=== PATIENT | male | born 1965 | race Caucasian/White ===

== ENCOUNTER 2020-02-28 05:18 | Observation (INO) ==
--- NOTE | 2020-02-19 11:20 | PAT Medication Instructions ---
Medication Instructions Date of Service February 19, 2020 Home Medications ascorbic acid (vitamin C) [Vitamin C] 1 g PO QAM calcium carbonate-vitamin D3 [Calcium 500 + D] 1 tab PO QAM cyanocobalamin (vitamin B-12) [Vitamin B-12] 1,000 mcg PO QAM finasteride 5 mg PO QAM multivitamin 1 cap PO QAM DO NOT take the morning of surgery ascorbic acid (vitamin C) [Vitamin C] 1 g PO QAM calcium carbonate-vitamin D3 [Calcium 500 + D] 1 tab PO QAM cyanocobalamin (vitamin B-12) [Vitamin B-12] 1,000 mcg PO QAM multivitamin 1 cap PO QAM Take morning of surgery With a small sip of water, OTHERWISE NOTHING TO EAT OR DRINK AFTER MIDNIGHT: finasteride 5 mg PO QAM Other Notes If you have any questions please call us at [phone] or [phone] or [phone] or [phone]
--- NOTE | 2020-02-20 12:52 | Anesthesiology Consultation ---
Date of Service February 20, 2020 Assessment & Plan (1) Encounter for pre-operative examination: Per PAT assessment on 02/19: Travel screen- Lives in [facility]. Travel to [facility] for doctor appt. Works in [employer]. 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 No known COVID-19 positive contacts. No current COVID-19 related symptoms. Surgeon arranging preop COVID testing (planned for 02/21). Awaiting results. Chart Review Chart Review: Acceptable Risk for Surgery (pending surgeon-ordered PCP clearance (Dr. Robb Martinez)) and Patient seen in Pre Admission Testing Teaching & Discussion Pre-Anesthesia Teaching/Discussion Notes: Instructed NPO after midnight before surgery,except medications with 15 cc of water. Medication instructions provided according to the PAT guidelines. History Surgery Operation Date: 02/28/20 11:40 Proposed Procedures p Left Total Hip Arthroplasty - Drew Cordero MD Height/Weight Height: 5 ft 10.5 in Weight: 110.9 kg Allergies Allergy/AdvReac Type Severity Reaction Status Date / Time lisinopril Allergy Mild Cough Verified 02/19/20 09:51 Medications Home Medications Medication Instructions Recorded Confirmed Last Taken ascorbic acid (vitamin C) [Vitamin 1 g PO QAM 02/19/20 02/19/20 Unknown C] calcium carbonate-vitamin D3 1 tab PO QAM 02/19/20 02/19/20 Unknown [Calcium 500 + D] cyanocobalamin (vitamin B-12) 1,000 mcg PO QAM 02/19/20 02/19/20 Unknown [Vitamin B-12] finasteride 5 mg PO QAM 02/19/20 02/19/20 Unknown multivitamin 1 cap PO QAM 02/19/20 02/19/20 Unknown Past Medical History Medical History Chronic back pain Hx of blood clots LLE post-op thyroid surgery (04/2019)- was on Xarelto x 2-3 months Hyperlipidemia Obesity Osteoarthritis Exercise / Class Metabolic Activity II 4-5 Yardwork/Stairs/Walk up hill Past Surgical History Surgical History Hx of colonoscopy Hx of thyroidectomy partial (2/2 thyroid enlargement/no cancer) Hx of tonsillectomy Past Anesthesia History No Hx of Anesthesia Complications and No Family Hx of Anesthesia Complications History of PONV No Hx of PONV and No Hx of Motion Sickness Social History Smoking Status: Never smoker Do You Dip or Chew Tobacco: No Hx Alcohol Use: Yes Alcohol type: wine alcohol intake frequency: 0-2 drinks per day (2 glasses wine/day) Hx Substance Use: No substance use type: does not use Review of Systems Patient denies chest pain, shortness of breath, dyspnea on exertion, fever, chills, cough, wheezing, palpitations. Physical Exam Vital Signs VITALS BP 127/84 P 85 TEMP 98.2 SP02 96%RA RESP 18 PHYSICAL Full neck and c-spine range of motion. Full TMJ range of motion. TMD 3 finger breaths Mallampati Score 3 Dentition: missing molars Lungs: clear throughout to auscultation Cardiac: regular rate and rhythm, no murmurs noted Spine: normal Carotid arteries: negative bruit Extremities: no edema Testing Laboratory Results 02/20/20 13:59 02/20/20 13:59 PT 10.9 Seconds (9.0-12.0) 02/20/20 13:59 INR 1.0 (0.9-1.1) 02/20/20 13:59 APTT 31.7 Seconds (21.0-31.0) H 02/20/20 13:59 Hemoglobin A1c 5.3 % (4.5-5.6) 02/20/20 13:59 Urine Color Yellow 02/20/20 Unknown Urine Appearance Clear (Clear) 02/20/20 Unknown Urine pH 7.0 (4.5-7.5) 02/20/20 Unknown Ur Specific [place] 1.023 (1.000-1.030) 02/20/20 Unknown Urine Protein Negative (Negative) 02/20/20 Unknown Urine Glucose (UA) Negative (Negative) 02/20/20 Unknown Urine Ketones 1+ (Negative) H 02/20/20 Unknown Urine Nitrite Negative (Negative) 02/20/20 Unknown Ur Leukocyte Esterase Negative (Negative) 02/20/20 Unknown Blood Type O Negative 02/20/20 13:59 Antibody Screen NEGATIVE 02/20/20 13:59 Electrocardiogram Date: 02/20/20 NSR at 84bpm. unconfirmed report.
[2020-02-20 14:24] LABS: Basophils # (auto) 0.02 K/uL (0-0.2); Basophils % (auto) 0.3 %; Eosinophils % (auto) 1.3 %; Hematocrit (blood only) 44.9 % (42-52); Immature Granulocytes # (auto) 0.04 K/uL (0.00-0.02); Immature Granulocytes % (auto) 0.5 %; Lymphocytes # (auto) 1.77 K/uL (1.2-3.4); Lymphocytes % (auto) 23.7 %; Mean Corpuscular Hemoglobin 29.5 pg (25-34); Mean Corpuscular Hgb Conc 33.4 g/dL (32-36); Mean Corpuscular Volume 88.4 fL (80-100); Mean Platelet Volume 9.7 fL (7.4-10.4); Monocytes # (auto) 0.57 K/uL (0.11-0.59); Monocytes % (auto) 7.6 %; Neutrophils # (auto) 4.97 K/uL (1.4-6.5); Neutrophils % (auto) 66.6 %; Platelet Count 245 K/uL (130-400); RDW Coefficient of Variation 12.9 % (11.5-14.5); RDW Standard Deviation 41.8 fL (36.4-46.3); Red Blood Count 5.08 M/uL (4.7-6.1); White Blood Count 7.47 K/uL (4.8-10.8)
[2020-02-20 14:28] LABS: Appearance Urine Clear (Clear); Bilirubin Urine Negative (Negative); Blood Urine Negative (Negative); Color Urine Yellow; Glucose Urine UA Negative (Negative); Ketones Urine 1+ (Negative); Leukocyte Esterase Urine Negative (Negative); Nitrite Urine Negative (Negative); Protein Urine Negative (Negative); Specific Gravity Urine 1.023 (1.000-1.030); Urobilinogen Urine Negative (Negative)
[2020-02-20 14:41] LABS: Partial Thromboplastin Ratio 1.1; Partial Thromboplastin Time 31.7 Seconds (21.0-31.0); Prothrombin Time 10.9 Seconds (9.0-12.0)
[2020-02-20 14:53] LABS: Estimated Average Glucose 105 mg/dl; Hemoglobin A1C 5.3 % (4.5-5.6)
[2020-02-20 16:33] LABS: BUN Creatinine Ratio 20.6 (10-20); Calcium 8.5 mg/dl (8.5-10.1); Creatinine Clr Calc Pharmacy 120.6 ml/min; Est GFR (African American) 113.1; Est GFR (Non-African American) 97.6
--- NOTE | 2020-02-21 16:29 | History & Physical Report ---
Date of Service February 21, 2020 Assessment & Plan (1) Degenerative joint disease of left hip: Postoperative prescriptions for Coumadin and Percocet will be provided at discharge from the hospital. Anticipate discharge to his parents' home with home health. He states he may also consider rehab hospitalization if available. Prescription was provided for a rolling walker. He will obtain COVID testing prior to surgery. The patient is aware of COVID-19 risks associated with surgery. He is currently asymptomatic of any COVID-19 symptoms. PDMP was checked and is unremarkable. Preoperative lab work, EKG, and chest x-ray have been obtained today. He has an appointment for medical clearance in 2 days with his PCP. History of Present Illness Chief Complaint: Left hip pain Primary Care Provider: Robb Martinez This 54-year-old white male presents with his mother for his preoperative history and physical. He is scheduled to undergo a left hip total hip arthroplasty on 02/28/2020. The patient has a longstanding history of left hip pain. 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 He has had pain in his hip for over 10 years. It has become worse with time. Pain is now affecting his ADLs. It is worse with any standing or ambulation. No numbness or tingling. He has significant difficulty with stairs. He has tried activity modification as well as oral anti-inflammatories without improvement. Preoperative imaging has been obtained. He elects to proceed with surgical intervention in hopes of improving his discomfort. Allergies Allergy/AdvReac Type Severity Reaction Status Date / Time lisinopril Allergy Mild Cough Verified 02/19/20 09:51 Home Medications Home Medications Medication Instructions Recorded Confirmed Type ascorbic acid (vitamin C) [Vitamin 1 g PO QAM 02/19/20 02/19/20 History C] calcium carbonate-vitamin D3 1 tab PO QAM 02/19/20 02/19/20 History [Calcium 500 + D] cyanocobalamin (vitamin B-12) 1,000 mcg PO QAM 02/19/20 02/19/20 History [Vitamin B-12] finasteride 5 mg PO QAM 02/19/20 02/19/20 History multivitamin 1 cap PO QAM 02/19/20 02/19/20 History Past Med/Surg History Medical History Chronic back pain Hx of blood clots LLE post-op thyroid surgery (04/2019)- was on Xarelto x 2-3 months Hyperlipidemia Obesity Osteoarthritis Surgical History Hx of colonoscopy Hx of thyroidectomy partial (2/2 thyroid enlargement/no cancer) Hx of tonsillectomy Social History (Updated 02/21/20 @ 16:25 by John Caldwell PA-C) Smoking Status: Never smoker Second Hand Exposure: No; Do You Dip or Chew Tobacco: No; Tobacco Cessation Education Requested by Patient: No Hx Alcohol Use: Yes Alcohol type: wine Hx Substance Use: No Preferred Language: Syriac Communication Ability: Effective Visual Impairment: No Limitations Hearing Ability: Normal Aws Consultant Required: No Beliefs That Will Affect Care: None Current Living Situation: Alone current occupational status: employed current occupation: [employer] Other Information That Helps Us Care for You: No Feels Safe at Home: Yes Safety Concerns: Feels Safe At This Time Review of Systems Review of Systems: All systems reviewed & are unremarkable except as noted in HPI & below A total of 10 systems were reviewed. Physical Exam Physical Exam: Vitals: Height 177 cm, weight 111.4 kilograms, BMI 35.6, temperature 36.5, BP 116/58, pulse 90, O2 sat 97% on room air. General: Well-developed, well-nourished middle-aged white male in no acute distress. Obvious discomfort. Sitting in a chair. Alert and oriented. Skin: Warm and dry with good turgor. No rashes or lesions. No ecchymosis or erythema. HEENT: Normocephalic, atraumatic. Eyes: PERRLA, EOMI. Nares and oropharynx exams deferred due to COVID precautions. Heart: RRR, no MGR. Lungs: Clear to auscultation bilaterally, no crackles, rhonchi or wheezing, goo d air movement. Abdomen: Obese, bowel sounds present x4, soft, nontender. No organomegaly. No masses. Musculoskeletal: Left hip has no discomfort with palpation over the lateral aspect. He does have discomfort with palpation over the anterior flexion crease and into the groin. There is a 20-degree flexion contracture. He does ambulate with a significant antalgic gait. Significant leg length discrepancy of approximately 2 inches. External rotation of around 20 degrees. Internal rotation only to neutral. Strength is 5/5 for resisted hip flexion and adduction. Strength is 4/5 for resisted abduction. Neurologic: Gross sensation is intact across the lower extremities by soft touch. Peripheral pulses are 2+. Results & Data Results & Data ([facility]) Diagnostic Findings Radiographic imaging previously obtained shows endstage DJD with severe flattening of the head and undersized femur. Periarticular osteophytes are present.
--- NOTE | 2020-02-22 05:58 | Electrocardiogram Report ---
Test Reason : Blood Pressure : / mmHG Vent. Rate : 084 BPM Atrial Rate : 084 BPM P-R Int : 180 ms QRS Dur : 090 ms QT Int : 382 ms P-R-T Axes : 063 041 058 degrees QTc Int : 451 ms Normal sinus rhythm Normal ECG No previous ECGs available Confirmed by Gera Kingsley ([id number]) on 02/22/2020 5:58:01 AM Referred By: Drew Cordero Confirmed By:Gera Kingsley
[2020-02-28] MEDS ORDERED: TRANEXAMIC ACID / 0.7% NACL 1000MG/100ML BAG IV ONE (05:36)
[2020-02-28] MEDS ORDERED: ROPIVACAINE 0.5% HCL/PF 150 MG, BUPIVACAINE 0.5% MPF 30 ML, EPINEPHrine 0.15 MG, Ketoro... INFIL SCH (06:00)
[2020-02-28] MEDS ORDERED: LR 60ML/HR IV SCH (06:00)
[2020-02-28] MEDS ORDERED: CEFAZOLIN 2000MG 2,000 MG/15 ML SYR IV SCH (06:00)
[2020-02-28] MEDS ORDERED: TRANEXAMIC ACID 1,000 MG x 1 **For Topical Use TOP SCH (06:00)
[2020-02-28] MEDS ORDERED: TRANEXAMIC ACID 1,000 MG **IV Pre-op IV SCH (06:00)
[2020-02-28] MEDS ORDERED: LR 500ML BOLUS, THEN 15ML/HR IV SCH (06:00)
--- NOTE | 2020-02-28 06:21 | History & Physical Bridge Note ---
Date of Service February 28, 2020 History & Physical Bridge Note I have examined the patient, reviewed the History & Physical and in the interval since the performance of the History & Physical I have noted the following changes of clinical significance: consent obtained/site marked/covid screen negative.no changes noted
[2020-02-28] MEDS ORDERED: BUPIVACAINE 0.5 % 5 MG/1 ML PF 10ML VIAL ONE (06:25)
[2020-02-28] MEDS ORDERED: ORTHO JOINT ANESTHETIC ONE (06:29)
[2020-02-28] MEDS ORDERED: fentaNYL citrate 100 MCG/2 ML VIAL IV PRN (06:34)
[2020-02-28] MEDS ORDERED: ATROPINE SULFATE 0.1 MG/ML 10ML SYR IV PRN (06:34)
[2020-02-28] MEDS ORDERED: ONDANSETRON INJ 2 MG/ML 2 ML VIAL IV PRN ×2 (06:34→10:08)
[2020-02-28] MEDS ORDERED: ePHEDrine sulfate 50 MG/ML AMP IV PRN (06:34)
[2020-02-28] MEDS ORDERED: MIDAZOLAM HCL 1 MG/ML 2ML VIAL ONE ×2 (06:36→06:53)
[2020-02-28] MEDS ORDERED: fentaNYL citrate 100 MCG/2 ML VIAL ONE (06:36)
[2020-02-28] MEDS ORDERED: PROPOFOL IV EMULSION 10 MG/ML 20 ML VIAL IV ONE ×3 (06:41→08:46)
[2020-02-28] MEDS ORDERED: LIDOCAINE HCL 2% 2 ML VIAL/AMP(20MG/ML) INFIL ONE (06:41)
[2020-02-28] MEDS ORDERED: ePHEDrine sulfate 50 MG/ML SYR ONE (08:09)
[2020-02-28] MEDS ORDERED: PHENYLEPHRINE HCL 10 MG/ML VIAL ONE (08:09)
[2020-02-28] MEDS ORDERED: CEFAZOLIN 250 MG/ML 1 GM VIAL ONE (08:27)
[2020-02-28] MEDS ORDERED: CEFAZOLIN 1000MG 1,000 MG/7.5 ML SYR IV ONE (08:27)
--- NOTE | 2020-02-28 09:05 | Post Operative Brief Note ---
Immediate Post Op Note v1 Date of Surgery February 28, 2020 Pre & Post Diagnosis Operation Date: 02/28/20 07:00 Pre-Op Diagnosis: Left Hip Degenerative Joint Disease with Dysplasia Post-Op Diagnosis: Left Hip Degenerative Joint Disease with Dysplasia I identified the patient and participated in the time-out.: Yes Procedure Operation Date: 02/28/20 07:00 Actual Procedures p Left Total Hip Arthroplasty--Uncemented(Left) - Drew Cordero MD Surgeon Drew Cordero MD Health And Wellness Coach [facility]med student [facility] Estimated Blood Loss 300 Findings Consistent with Post-Op Diagnosis
--- NOTE | 2020-02-28 09:16 | Operative Report ---
Post Operative Report Pre & Post Diagnosis Operation Date: 02/28/20 07:00 Pre-Op Diagnosis: Left Hip Degenerative Joint Disease with Dysplasia Post-Op Diagnosis: Left Hip Degenerative Joint Disease with Dysplasia I identified the patient and participated in the time-out.: Yes Procedure Operation Date: 02/28/20 07:00 Actual Procedures p Left Total Hip Arthroplasty--Uncemented(Left) - Drew Cordero MD Surgeon DONATO Cordero MD Straightedge Machine Operator Helper carlos ROSALES/mack[employer] student [employer] Estimated Blood Loss 300 Findings Consistent with Post-Op Diagnosis Specimens see operative report Drains none Complications none Disposition Accompanied Patient To Recovery: Yes Disposition: Recovery Room Indications This 54-year-old white male presented to the office with complaints of worsening left hip pain. 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 It has become worse with time. He elected to proceed with surgical intervention after being educated about potential risks and outcomes. Preoperative imaging was obtained. Description of Procedure Patient was administered a spinal anesthetic and then taken to the operating room where he was given sedation. He was prepped and draped in the usual sterile fashion. Please see Dr. Cordero's operative report for specifics of the procedure. I was present for the entire case from initial patient positioning through final wound closure. Assistance was provided in tissue retraction, hemostasis, trial implant placement, final implant placement, and final wound closure. Patient was taken to the recovery room in satisfactory condition. I attest to the content of the Intraoperative Record and any orders documented therein. Any exceptions are noted below.
--- NOTE | 2020-02-28 09:22 | Operative Report (OR) ---
DATE OF OPERATION: 02/28/2020 SURGEON: Drew Cordero MD. PAINTER ORDNANCE: John Caldwell PA-C. SECOND PAINTER ORDNANCE: Med student, [place]. PREOPERATIVE DIAGNOSES: Left hip dysplasia, Perthes disease with severe arthritis. POSTOPERATIVE DIAGNOSIS: Left hip dysplasia, Perthes disease with severe arthritis. OPERATION PERFORMED: Noncemented left total hip replacement. PERIOPERATIVE SITUATION: Medically cleared male with severe disease. He will require smaller implants based on bone deformities, leg length inequality is almost 2 inches. He understands that there are risk for instability fracture, leg length inequality, nerve damage. This was all discussed in detail with him. He wanted to try to get his leg lengths as close as possible. SUMMARY OF IMPLANTS: Cup is a G7, 48 mm, 20 mm screws x2, liner was for G7, dual mobility size C 38 mm. Stem was a size 1 standard [place], head was a 28+1.5 ceramic. DESCRIPTION OF PROCEDURE: The patient was appropriately identified, site verified, consent verified. Antibiotics confirmed as being given. The left lower extremity was prepped and draped in usual routine fashion. The patient was placed in the right lateral decubitus position. A posterior approach to the hip was made. He was a large man, so an extensive incision was made. There was fair amount of fibrotic change in the subcutaneous tissue. The IT band was identified and incised. The anatomy of the hip was all abnormal. The capsule was then opened. The short external rotators were released. They were all contracted. The hip was then dislocated. The head was markedly deformed. The head was resected. The acetabulum, a lot of soft tissue debris and lateral subluxation; this was all carefully cleaned out to medialize the hip appropriately. The labrum and inferior transverse ligament was then excised. Serial reaming then carried up from 40 to a 48, 48 cup impacted into appropriate anteversion inclination. Two additional screws were placed, 20 mm additional screw was tried, but could not get it to engage, so it was left out. The fixation was excellent without the additional screw. Permanent liner was then seated. Care was to make sure it was lined up well. It was impacted into position and an excellent fit was obtained. The wound was then irrigated. The femur was then flexed, internally rotated and serial broaching reaming was carried out. It required revision proximal femoral cut due to the length. Once this was done, the size 1 fit well. It was then reduced and the hip was extremely stable and leg lengths were close with the +1.5 head. The trial stem and head were then removed. The wound was irrigated one final time. The permanents impacted into position. Permanent head and a multi-dual mobility cup placed and the hip was then reduced. The hip was stable in all planes. Leg lengths were excellent. The wound was then irrigated one final time and closed with #2 Vicryl, 2-0 Vicryl and stainless steel clips. Appropriate dressing applied. The patient transferred to recovery room in satisfactory condition having tolerated the procedure well. I attest to the content of the Intraoperative Record and any orders documented therein. Any exceptions are noted below. PIYUSH
--- NOTE | 2020-02-28 09:44 | XRay Report ---
XR pelvis 1-2V routine CLINICAL HISTORY: Postop total left hip arthroplasty COMPARISON: None. DISCUSSION: There are postsurgical changes of a total left hip arthroplasty. There is gas in the soft tissues consistent with recent surgery. There are overlying skin salud. There is no dislocation. T he acetabular screws protrudes the soft tissue pelvis. IMPRESSION: Postsurgical changes of a total left hip arthroplasty. ACT 112: Negative or not required by law. Electronically signed by: Markus Ramsey M.D. 02/28/2020 9:43 AM
[2020-02-28] MEDS ORDERED: HYDROmorphone INJ 0.5 MG/0.5 ML SYR IV PRN (10:08)
[2020-02-28] MEDS ORDERED: NALOXONE HCL 0.4 MG/1 ML VIAL/CARP IV PRN (10:08)
[2020-02-28] MEDS ORDERED: ALUMINUM/MAGNESIUM SUSP 30 ML UDC PO PRN (10:08)
[2020-02-28] MEDS ORDERED: DiphenhydrAMINE HCL 50 MG/ML VIAL IV PRN (10:08)
[2020-02-28] MEDS ORDERED: TAMSULOSIN HCL 0.4 MG CAP PO PRN (10:08)
[2020-02-28] MEDS ORDERED: SODIUM CHLORIDE 0.9% 1000ML 1,000 ML IV SCH (10:08)
[2020-02-28] MEDS ORDERED: bisacodyL 10 MG SUPP PR PRN (10:08)
[2020-02-28] MEDS ORDERED: METOCLOPRAMIDE HCL INJ 5 MG/ML 2 ML VIAL IV PRN (10:08)
[2020-02-28] MEDS ORDERED: MAGNESIUM HYDROXIDE SUSP 30 ML UDC PO PRN (10:08)
--- NOTE | 2020-02-28 10:26 | Anesthesiology Progress Note ---
Date of Service February 28, 2020 Anesthesia Post Procedure Vital Signs Vital Signs: Temp Pulse Pulse Resp BP BP Pulse Ox 02/28/20 10:00 97.7 F 79 18 108/70 97 02/28/20 09:45 97.7 F 85 18 108/71 95 02/28/20 09:35 85 19 110/61 95 02/28/20 09:25 86 19 101/68 95 02/28/20 09:15 98.6 F 93 H 21 99/68 L 98 02/28/20 06:02 98.1 F 74 20 147/94 H 98 Pain Intensity Left Hip: Pain Intensity: 0 Transfer of Care Handoff Completed per policy Notes Mental Status: alert / awake / arousable and participated in evaluation Patient Amnestic to Procedure: Yes Nausea / Vomiting: adequately controlled Pain: adequately controlled Airway Patency, RR, SpO2: stable & adequate BP & HR: stable & adequate Hydration State: stable & adequate Neuraxial Anesthesia: was administered and sensory block is resolving Anesthetic Complications: no major complications apparent and Pt Satisfied with anesthetic care
[2020-02-28] MEDS: KETOROLAC 30 MG/ML VIAL IV SCH ×3 (11:08→22:18)
--- NOTE | 2020-02-28 13:24 | Progress Notes ---
DATE: 02/28/2020 SUBJECTIVE: Postop check status post left total hip replacement for dysplasia and Perthes disease. The patient is sitting up in bed eating and drinking. He denies any chest pain, shortness of breath, fever, chills, nausea, vomiting or headache. He notes that he ate breakfast and lunch. Spinal is just about all worn off. He can wiggle his toes well. He can dorsiflex his ankle and plantar flex his ankle well. He can straighten his knee. PHYSICAL EXAMINATION: Reveals a soft abdomen. Has not voided yet. No pressure. Intact neurovascular check, femoral sciatic nerve and pulses. Wound dressing clean, dry and intact. Postop x-rays reveal excellent positioning of the cup and stem with good correction of leg lengths, just a slight protrusion of screws in the acetabular fixation without any clinical consequence. ASSESSMENT: Overall, doing well status post complex hip replacement for Perthes and dysplasia. He is doing well postop. We will continue with postop care pathway ADDENDUM: We will treat with Xarelto for DVT since he has had a history of that in that leg. We will start that 24 hours postop.
--- NOTE | 2020-02-28 13:32 | Discharge Summary (DS) ---
CHIEF COMPLAINT: Left hip pain. HISTORY OF PRESENT ILLNESS: Underwent elective left total hip replacement for dysplasia and Perthes disease with severe deformity of his left hip. Has significant leg length discrepancy. At this point in time his hospital course has been uneventful. PAST MEDICAL/PAST SURGICAL HISTORY: Remarkable for history of blood clot and left leg. Postop thyroid surgery. Was on Xarelto in the past, hyperlipidemia, obesity, osteoarthritis, chronic back pain, history of colonoscopy, thyroidectomy and tonsillectomy. SOCIAL HISTORY: Reveals he does not smoke, does not drink. 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 He has family. REVIEW OF SYSTEMS: Noncontributory for chest pain, shortness of breath, fever, chills, nausea, vomiting or headache. Postop x-rays reveal appropriate positioning of the cup and stem, good islam of leg lengths and slight protrusion of screws without any clinical significance in the acetabular fixation site. ASSESSMENT: Overall, doing well. PLAN: At this point in time he will be discharged tomorrow if he does well overnight. Outpatient PT to start at 1-2 weeks.
[2020-02-28] MEDS: CEFAZOLIN 2000MG 2,000 MG/15 ML SYR IV SCH ×2 (13:43→22:18)
[2020-02-28] MEDS: ACETAMINOPHEN 500 MG TAB PO SCH ×2 (13:43→21:20)
[2020-02-28] MEDS: OXYCODONE HCL IR 5 MG TAB (IMMEDIATE RELEASE) PO PRN ×3 (13:46→21:21)
[2020-02-28] MEDS: FERROUS GLUCONATE 324 MG TAB PO SCH (17:00)
[2020-02-28] MEDS: ASCORBIC ACID 500 MG TAB PO SCH (17:00)
[2020-02-28] MEDS ORDERED: SENNA 8.6 MG TAB PO SCH (21:00)
[2020-02-28] MEDS: DOCUSATE SODIUM 100 MG CAP PO SCH (21:20)
[2020-02-29] MEDS: KETOROLAC 30 MG/ML VIAL IV SCH (05:42)
[2020-02-29] MEDS: ACETAMINOPHEN 500 MG TAB PO SCH ×2 (05:42→12:52)
[2020-02-29 06:51] LABS: Basophils # (auto) 0.01 K/uL (0-0.2); Basophils % (auto) 0.1 %; Eosinophils # (auto) 0.06 K/uL (0-0.5); Eosinophils % (auto) 0.6 %; Hematocrit (blood only) 34.3 % (42-52); Hemoglobin 11.3 g/dL (14.0-18.0); Immature Granulocytes # (auto) 0.03 K/uL (0.00-0.02); Immature Granulocytes % (auto) 0.3 %; Lymphocytes # (auto) 1.51 K/uL (1.2-3.4); Lymphocytes % (auto) 14.8 %; Mean Corpuscular Hemoglobin 29.5 pg (25-34); Mean Corpuscular Hgb Conc 32.9 g/dL (32-36); Mean Corpuscular Volume 89.6 fL (80-100); Mean Platelet Volume 9.5 fL (7.4-10.4); Monocytes # (auto) 1.21 K/uL (0.11-0.59); Monocytes % (auto) 11.9 %; Neutrophils # (auto) 7.37 K/uL (1.4-6.5); Neutrophils % (auto) 72.3 %; Platelet Count 224 K/uL (130-400); RDW Standard Deviation 41.7 fL (36.4-46.3); Red Blood Count 3.83 M/uL (4.7-6.1); White Blood Count 10.19 K/uL (4.8-10.8)
[2020-02-29 07:15] LABS: BUN Creatinine Ratio 23.3 (10-20); Creatinine Clr Calc Pharmacy 120.2 ml/min; Est GFR (African American) 113.7; Est GFR (Non-African American) 98.1; Potassium 3.8 mmol/L (3.5-5.1)
--- NOTE | 2020-02-29 07:32 | Progress Notes ---
DATE: 02/29/2020 SUBJECTIVE: Postop day one status post left total hip replacement for dysplasia and Perthes disease. At this point, the patient did well overnight. He is moving well. He is eating and drinking well. He denies any chest pain, shortness of breath, fever, chills, nausea, vomiting or headache. Denies any abdominal pain. Laboratory work reveals hematocrit stable at 34.3. Vital signs are stable. He is afebrile. He is not tachycardic. PHYSICAL EXAMINATION: Reveals calves nontender. Able to do straight leg raise, able to flex and extend his hip. Able to dorsi and plantarflex his ankle. Neurovascular check, femoral sciatic nerve is intact. Pulses are good. Wound dressing had some minor drainage. This will be changed later today. ASSESSMENT: Overall, doing well PLAN: To discharge home today. We will need a new walker. His present walker is too short for him. I am not quite sure why that was fit for him, but it was picked up by his parents. Will need a new prescription and a new walker. Discharge to home today with services. Case management to follow. Follow up in 2 weeks for staple removal. We will discharge on Xarelto based on his history of having DVT on that extremity, start that today. PIYUSH
[2020-02-29] MEDS ORDERED: dexAMETHasone 10 MG in SYRINGE 0 ML IV SCH (08:00)
[2020-02-29] MEDS: ASCORBIC ACID 500 MG TAB PO SCH (08:13)
[2020-02-29] MEDS: FERROUS GLUCONATE 324 MG TAB PO SCH (08:13)
[2020-02-29] MEDS: DOCUSATE SODIUM 100 MG CAP PO SCH (08:14)
[2020-02-29] MEDS: OXYCODONE HCL IR 5 MG TAB (IMMEDIATE RELEASE) PO PRN (08:15)
[2020-02-29] MEDS ORDERED: CYANOCOBALAMIN 500 MCG TABLET (VITAMIN B-12) PO SCH (09:00)
[2020-02-29] MEDS ORDERED: RIVAROXABAN 10 MG TABLET PO SCH (09:00)
[2020-02-29] MEDS ORDERED: MULTIVITAMIN TAB PO SCH (09:00)
[2020-02-29] MEDS ORDERED: FINASTERIDE 5 MG TAB PO SCH (09:00)
--- NOTE | 2020-02-29 09:00 | Orthopedic Progress Note ---
Date of Service February 29, 2020 Assessment & Plan (1) S/P total hip arthroplasty: Postsurgical dressings were changed by me today. LULU hose were reapplied. PT/OT today. Anticipate discharge to home today with home health. He will be staying with his parents. Postoperative prescriptions for Percocet and Xarelto 10 mg have been sent to his pharmacy. Follow-up in the office in 2 weeks for staple removal as scheduled. Written discharge instructions have been provided. Admission and Anticipated Discharge Date Admission Date: February 28, 2020 Subjective Patient is seen in his room this morning. States he did well overnight. He was able to sleep some. He describes his left hip pain as a soreness, and not true pain. Denies any chest pain, nausea, vomiting, abdominal pain, or shortness of breath. No other complaints. Feels ready for discharge to home. He has already finished his breakfast. Review of Systems Review of Systems: Unchanged from yesterday Physical Exam Physical Exam: General: Well-developed, well-nourished, middle-aged white male, in no acute distress. Laying on a bed. Alert and oriented. Conversive. Skin: Warm and dry with good turgor. No rashes or lesions. No ecchymosis or erythema. The patient is not diaphoretic. No abrasions. Postsurgical dressings present on the left hip are moderately saturated. Musculoskeletal: Left hip evaluation reveals supple motion. Dressings are intact as stated. Upon removal, salud are intact. Wound edges are well approximated. Expected postoperative edema and ecchymosis. Nonfluctuant. No active bleeding. Intact motor function to his knee, ankle, and toes. Neurologic: Gross sensation is intact across the left leg by soft touch. Peripheral pulses are 2+. Results & Data ([facility]) Vital Signs (Past 12 Hours) Vital Signs Temp Pulse Resp BP Pulse Ox 02/29/20 07:43 36.5 C 79 16 135/84 99 02/29/20 03:25 36.9 C 77 14 121/70 97 02/28/20 23:20 36.6 C 72 18 106/66 98 Laboratory Results H&H obtained this morning are 11.3 and 34.3. BMP obtained this morning is unremarkable.
== END 2020-02-29 14:44 | disposition home health service (06) ==
LOC: ASU 05:18 → 3E 05:18